=== PATIENT | female | born 1960 | race Two or more races ===

== ENCOUNTER 2017-05-19 16:21 | Emergency (ER) | payer MEDICAID, OTHER ==
[~2017-05-19] VITALS: Ht 157.5 cm; Wt 62.6 kg
[2017-05-19] MEDS ORDERED: NKM (16:50)
[2017-05-19 16:53] VITALS: BP 156/80
--- NOTE | 2017-05-19 17:14 | Emergency Room Report ---
History of Present Illness General Chief Complaint: General Complaint Source: Patient Present Illness HPI Patient's daughter noted blood medial side of L eye this afternoon. Patient denies vomiting, coughing or trauma. She was worried because she has had a prior brain aneurism with clipping 6 years ago. No blood thinners, other bleeding disorders. Not hypertensive. Anxious about possible bleeding also in her head. No change in vision. Feels slight fullness of eye. She has occasional headaches R side of skull. Not this now. Takes motrin for these. Stress and anxiety. No depression. No seizures, chest pain, palpitations, LOC, change in urine or bowels. Patient History Past Medical History: see triage record Past Surgical History: other - aneurism clipping Social History: Denies: smoking, alcohol use, drug use Social History Narrative with daughter Last Menstrual Period: 6 years ago Now: No Reviewed Nursing Documentation: PMH: Agreed; PSxH: Agreed Nursing Documentation-PMH Past Medical History: No History, Except For Review of Systems All Other Systems: negative except mentioned in HPI Physical Exam Vital Signs Date Time Temp Pulse Resp B/P (MAP) Pulse Ox O2 Delivery O2 Flow Rate FiO2 05/19/17 16:43 98.3 59 16 156/80 98 Room Air 98.2 Sp02 EP Interpretation: reviewed, normal General Appearance: well appearing, no apparent distress, GCS 15 Head: normocephalic, atraumatic Eyes: left eye other - subconjunctival hemorrhage without significant edema; bilateral eye PERRL, bilateral eye EOMI ENT: hearing grossly normal, normal voice Neck: full range of motion, supple Respiratory: no respiratory distress, speaking full sentences Cardiovascular #1: regular rate, rhythm Gastrointestinal: normal inspection Musculoskeletal: no calf tenderness Neurologic: alert, oriented x3, 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 DDx: SC hemorrhage, anxiety. Normal neurologic exam. No h/o bleeding problems. Reassured patient. Patient stable for outpatient observation and treatment. Last Vital Signs Date Time Temp Pulse Resp B/P (MAP) Pulse Ox O2 Delivery O2 Flow Rate FiO2 05/19/17 17:19 98.2 74 16 156/80 98 Room Air 98.2 Status: improved Disposition: HOME, SELF-CARE Condition: Stable Christoph Torres M.D. May 19, 2017 17:14
[2017-05-19 17:19] VITALS: BP 156/80
== END 2017-05-19 17:20 | disposition home or self-care (01) ==
LOC: EMR 17:10
DX: H57.12 Ocular pain, left eye (principal); H11.32 Conjunctival hemorrhage, left eye; R51 Headache
CPT/HCPCS: 99282